=== PATIENT | female | born 1965 | race Caucasian/White ===

== ENCOUNTER 2023-12-07 12:45 | Emergency (ER) | payer BC ==
--- NOTE | 2023-12-07 14:55 | ED Physician Documentation ---
PD HPI LOWER EXT INJURY - Stated complaint Stated Complaint: LT LEG PX - Chief complaint Chief Complaint: Ext Problem - History obtained from History obtained from: Patient - History of Present Illness PD HPI LOW EXT INJURY LOCATION: Left, Knee Type of injury: No: Fall, Twist Timing - onset: How many years ago (has had knee pain for a year to [place], worse recently with xray and has seen ortho with MRI outpt last week. Has not heard result. having calf pain now too after car ride from [place]. 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 - Present Medications Home Medications: Ambulatory Orders Medication Instructions Recorded Confirmed Albuterol Sulf [Ventolin Hfa 1 inh INH PRN PRN 12/07/23 12/07/23 Inhaler] Amitriptyline HCl 1 tab PO DAILY 12/07/23 12/07/23 Famotidine 1 tab PO BID 12/07/23 12/07/23 HYDROcodone/ACET 7.5/325 [[place] 1 each PO Q6H PRN #25 tablet 12/07/23 7.5/325] Levothyroxine [Synthroid] 1 tab PO DAILY 12/07/23 12/07/23 Meloxicam [Mobic] 7.5 mg PO BID 10 Days #20 tablet 12/07/23 Mometasone Furoate [Asmanex] 1 inh INH DAILY 12/07/23 12/07/23 Montelukast Sodium 1 tab PO DAILY 12/07/23 12/07/23 dilTIAZem HCL [Diltiazem 24Hr ER 1 cap PO DAILY 12/07/23 12/07/23 (Cd)] - Allergies Allergies/Adverse Reactions: Allergies Allergy/AdvReac Type Severity Reaction Status Date / Time Sulfa (Sulfonamide Allergy Hives Verified 12/07/23 13:27 Antibiotics) - Social History Does the pt smoke?: No Smoking Status: Never smoker Does the pt drink ETOH?: Yes Does the pt have substance abuse?: No - Immunizations Immunizations are current?: Yes - POLST Patient has POLST: No PD ED PE NORMAL - Vitals Vital signs reviewed: Yes - General General: Alert and oriented X 3, Well developed/nourished - Derm Derm: Normal color, Warm and dry, Other (no redness nor warmth of the skin. ) - Extremities Extremities: Other (mild effusion of knee joint. Most of he tenderness medial joint line and popiteal. Consider medial meniscal. Hurts with stress testing every direction. No gross laxity. 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 ) PD Medical Decision Making - ED course Complexity details: reviewed results (has had prior xrays with arthritis and recent MRI with ortho f/u on it next week, so no imaging indicated here. US toe judith for DVT was negative. ), considered differential (has had knee pain for a year to some degree. Has recently seen ortho with MRI done [facility]. Has not heard result yet and sees Ortho next week. Having more pain to knee and also with some to calf area after long car ride from [place]. ), d/w patient Departure - Departure Disposition: 01 Home, Self Care Clinical Impression: Left leg pain Internal knee problem Qualifiers: Laterality: left Qualified Code(s): M23.92 - Unspecified internal derangement of left knee Clinical Impression: (Ruled Out): Deep vein thrombosis Condition: Stable Record reviewed to determine appropriate education?: Yes Prescriptions: Meloxicam [Mobic] 7.5 mg PO BID 10 Days #20 tablet HYDROcodone/ACET 7.5/325 [[place] 7.5/325] 1 each PO Q6H PRN #25 tablet PRN Reason: Pain 5-7 Comments: Your ultrasound does not show any blood clots/DVT. Obviously you are still having pain of the knee and some of the leg and the muscles. Presume you have some injury or strain of the leg muscle in the back of the leg in addition to the ongoing knee problem you have been having. Continue with the knee brace. Consider padding the back support of it as that may be pressurizing some of the back thigh muscles. Crutches as needed for partial weightbearing. Follow-up with your orthopedist. We can try a different anti-inflammatory and I wrote for meloxicam twice daily with food. To that add acetaminophen/Tylenol 500 to 650 mg 4 times daily regularly for the next week or so to help with pain. Add on hydrocodone 7.5 mg every 4-6 hours if needed for worse pains. I sent new prescriptions to the [facility] pharmacy. My narcotic instructions I am prescribing a short course of narcotic pain medication for you. These are potentially dangerous and addictive medications that should be used carefully. These medications may constipate you. Take an [id number]-[id number] stool softener such as docusate twice daily with plenty of water while taking these medications. If you go 24 hours without a bowel movement, take [id number] MiraLAX, per package instructions. Do not drink or drive while taking these medications. If you received narcotic or sedating medications while in the emergency department do not drive for 24 hours. Store this medication in a safe, secure place and out of reach of children. It is a violation of federal law to give or sell this medication to another person or to use in a manner other than prescribed. The ED will not refill narcotic prescriptions, including prescriptions lost or stolen. You can dispose of unwanted medications at the [facility]'s office or at several pharmacies such as [facility]. Forms: PCP List Discharge Date/Time: 12/07/23 17:42
[2023-12-07] MEDS: HYDROmorphone 1 MG/ML CARPUJECT IM STA (16:04)
[2023-12-07] MEDS: KETOROLAC 30 MG/ML VIAL IM STA (16:04)
--- NOTE | 2023-12-07 17:09 | Ultrasound Report ---
PROCEDURE: Duplex Ext Veins Left INDICATIONS: LLE swelling TECHNIQUE: Real-time imaging, as well as color and pulse Doppler interrogation, were performed of the lower extr emity deep veins from the inguinal ligament to the popliteal fossa. Attempted visualization of the ca lf veins was performed. COMPARISON: None. FINDINGS: The deep veins are normally compressible, and free of intraluminal thrombus. Color and pu lse Doppler demonstrate normal phasic intraluminal flow. There is normal augmentation response to di stal compression maneuver. IMPRESSION: No deep venous thrombosis of the visualized lower extremity. Reviewed by: Jeovanny Madden MD on 12/07/2023 5:08 PM PDT Approved by: Jeovanny Madden MD on 12/07/2023 5:08 PM PDT Station ID: [id number]
[2023-12-07 17:53] VITALS: BP 148/95; O2SAT 97
== END 2023-12-07 17:42 | disposition home or self-care (01) ==
LOC: ED 12:45
DX: M79.605 Pain in left leg (principal); M23.92 Unspecified internal derangement of left knee
CPT/HCPCS: 93971; 96372; 99283; 99284; J1170